=== PATIENT | female | born 1995 | race Hispanic/Latino ===

== ENCOUNTER 2021-08-23 17:33 | Emergency (ER) | payer MEDICAID ==
[~2021-08-23 17:33] MED LIST: PREN-202 PO
[2021-08-23 18:55] LABS: APPEARANCE,URINE Cloudy (CLEAR); BILIRUBIN,URINE Negative (NEGATIVE); COLOR,URINE Yellow (YELLOW); GLUCOSE, URINE (UA) Negative (NEGATIVE); KETONES,URINE Negative (NEGATIVE); LEUKOCYTE ESTERASE ,URINE Small (NEGATIVE); NITRATE,URINE Negative (NEGATIVE); OCCULT BLOOD,URINE Large (NEGATIVE); PROTEIN,URINE Trace mg/dL (NEGATIVE)
[2021-08-23 18:57] LABS: HCG,QUAL RESULT NEGATIVE (NEGATIVE)
[2021-08-23] MEDS ORDERED: KETOROLAC 30MG VIAL (30MG/ML) IM ONE (19:00)
[2021-08-23] MEDS ORDERED: ORPHENADRINE CITRATE 30 MG/ML ML IM ONE (19:00)
[2021-08-23 19:05] LABS: BACTERIA,URINE Few /HPF (None Seen); SQUAMOUS EPITHELIAL CELL,UR Few /HPF (0-2)
[2021-08-23] MEDS ORDERED: IBUP-2070 PO (19:56)
[2021-08-23] MEDS ORDERED: CYCL10TA16 PO (19:56)
[2021-08-23 20:06] VITALS: BP 132/75
== END 2021-08-23 20:05 | disposition home or self-care (01) ==
LOC: EDH 17:33
DX: M25.562 Pain in left knee (principal); M54.50 Low back pain, unspecified; G89.29 Other chronic pain; Z79.899 Other long term (current) drug therapy; W01.0XXA Fall on same level from slipping, tripping and stumbling without subsequent striking against object, initial encounter; Y93.89 Activity, other specified; Y92.89 Other specified places as the place of occurrence of the external cause; Y99.8 Other external cause status
CPT/HCPCS: 72100; 73562; 81001; 81025; 96372 ×2; 99284; J1885; J2360